=== PATIENT | female | born 1990 | race Caucasian/White ===

== ENCOUNTER 2022-09-07 19:57 | Observation (INO) | payer MEDICARE, SELFPAY ==
[2022-09-07] VITALS (38 sets, daily range): BP systolic 87–137; BP diastolic 49–85; PULSE 53–101; RESP 8–23; TEMP 37.3; O2SAT 96–100
--- NOTE | 2022-09-07 20:53 | ED.PROG_ITS ---
Date of service: 09/07/22 Time of Service: 20:53 Medical Decision Making I participated in this patient's care in setting of vaginal bleeding. She is reportedly 15 weeks . I completed a limited bedside ultrasound. Please see my procedure note. Patient had reassuring heart tones. She was hemod ynamically stable with no hypotension but she was mildly tachycardic. Patient's advanced practitioner paged JOB SITE SUPERINTENDENT to come to the patient. Patient was ultimately hospitalized at [facility]. Discharge Plan Discharge Details Chief Complaint: JOB SITE SUPERINTENDENT Admit Date/Time: 09/07/22 22:17 Admit Provider: Maeve Platt Attending Provider: Maeve Platt [facility] Ale Horne Discharge Data Discharge Date/Time-TO BE ENTERED AT DEPARTURE: 09/08/22 00:08 POCUS Exam (ED) Limited OB Exam DATE OF EXAM:: 09/07/22 TIME OF EXAM:: 20:54 PROVIDER THAT PERFORMED THE STUDY: Dwaine Ruffin Type of Exam: Pelvic OB Trans Abdominal REASON FOR EXAM: Vaginal Bleeding Exam Complete. DIFFERENTAL DIAGNOSES: heart rate 169 bpm. INCIDENTAL FINDINGS: There was an anechoic area just inferior to the placenta on transabdominal pelvic ultrasound.
[2022-09-07] MEDS: Normal Saline 1,000 ML 1000 ML IV (21:23)
[2022-09-07 21:45] LABS: ALT 17 U/L (14-59); AST 16 U/L (15-37); Albumin 3.5 g/dL (3.4-5.0); Alkaline Phosphatase 52 U/L (46-116); Anion Gap 9.4 mmol/L (3-11); BUN 10 mg/dL (7-18); Bilirubin, Total 0.2 mg/dL (0.2-1.0); CO2 22.6 mmol/L (21.0-32.0); CREATININE 0.6 mg/dL (0.55-1.02); Calcium 8.6 mg/dL (8.5-10.1); Chloride 101 mmol/L (98-107); Estimated GFR 123.76 (mL/min/1.73m2); Glucose 103 mg/dL (74-106); Potassium 3.9 mmol/L (3.5-5.1); Sodium 133 mmol/L (136-145); Total Protein 6.9 g/dL (6.4-8.2)
[2022-09-07 21:46] LABS: Abs Immature Grans 0.12 10^3/uL (0.0-0.06); Absolute Lymphocyte Count 2.36 10^3/uL (1.2-3.4); Absolute Monocyte Count 0.68 10^3/uL (0.1-0.8); Basophils % 0.2; Eosinophils % 0.7; HCT 26.8 % (36.0-46.0); HGB 9.1 g/dL (11.2-15.7); Immature Grans % 0.7; Lymphocytes % 13.5; MCV 91 fL (80-95); MPV 11.7 fL (8.0-11.0); Monocytes % 3.9; Platelet Count 203 10^3/uL (130-400); RBC 2.94 10^6/uL (3.93-5.22); RDW 13.2 % (11.7-14.6); RDW-SD 43.6 fL; WBC 17.51 10^3/uL (4.4-10.8)
[2022-09-07 21:49] LABS: Absolute Basophil Count 0.04 10^3/uL (0.0-0.2); Absolute Eosinophil Count 0.12 10^3/uL (0.0-0.7); Absolute Neutrophil Count 14.18 10^3/uL (1.2-6.7)
[2022-09-07 22:41] LABS: Bilirubin Small (Negative); Blood Large (Negative); Clarity Turbid (Clear); Glucose Negative (Negative); Ketones Negative (Negative); Leukocyte Esterase Trace (Negative); Nitrite Negative (Negative); Specific Gravity 1.025 (1.005-1.025); Urobilinogen 0.2 mg/dL (Up to 0.2); pH 7.5 (5-8)
[2022-09-07] MEDS: Prochlorperazine 10 MG/2 ML VIAL 5 MG IVP (22:43)
[2022-09-07 22:48] LABS: RBC >50 HPF (0-2)
[2022-09-07 22:49] LABS: C & S Indicated? Yes
[2022-09-07] MEDS: MORPHine 4 MG/ML SYR 2 MG IVP (22:55)
--- NOTE | 2022-09-07 22:56 | HPE_ITS ---
Date of service: 09/07/22 Time of Service: 22:56 Assessment and Plan Assessment and plan (1) Grand mal seizure disorder: Status: Chronic Assessment and plan: Patient declines antiseizure medication while . (2) : Status: Acute Assessment and plan: BRANDON of 03/01/2023 documented at the time of a 14-week OB ultrasound (3) Partial placenta previa: Status: Acute Assessment and plan: We will repeat OB ultrasound in the morning (4) First trimester bleeding: Status: Acute Assessment and plan: I spoke with Alicja Bhatia MD attending physician at [facility] OB department. She agreed with the plan of maintaining stable hematocrit and expectant management. She will accept the patient in transfer if the patient desires a termination of for maternal safety. At the present time plan is to continue expectant management pain control and close observation of vital signs and bleeding status. (5) Subchorionic bleed: Status: Acute History of Present Illness History of Present Illness Chief Complaint: IUP @15 W1D EGA, partial placenta previa subchorionic hemorrhage Narrative: Pt is a 32yo female who is currently 15w1d EGA by LMP consistent with a 14-week OB ultrasound. Her BRANDON is 03/01/2023. She moved from [facility] to [place] a week ago. All her care has been in [facility]. Her course has been complicated by an episode of light vaginal bleeding beginning approximately 2 weeks ago. She was evaluated on 08/16/2022 with a transvaginal ultrasound that showed a viable IUP with no evidence of a subchorionic hemorrhage. The bleeding persisted with mild cramping and repeat ultrasound was performed on 08/29/2022 and showed a partial placenta previa with posterior insertion and a 65 x 52 x 39 mm subchorionic hemorrhage. After arriving in [place] last week bleeding has become heavier with the passage of clots and in the last 24 hours she reports having to change a page-pad every 1-2 hours and passing clots several times a day. She reports uterine cramping and nausea no emesis. Review of Systems Narrative: Patient reports uterine cramping and nausea since earlier today. Constitutional Constitutional: Denies body ache(s) and Denies fever(s) Cardiovascular Cardiovascular: Reports system reviewed and no additional complaints, except as documented Respiratory Respiratory: Reports system reviewed and no additional complaints, except as documented Gastrointestinal Gastrointestinal: Reports constipation and Reports nausea Genitourinary Genitourinary: Reports abnormal vaginal bleeding Musculoskeletal Musculoskeletal: Reports system reviewed and no additional complaints, except as documented Neurologic Neurologic: Reports seizure-like activity (Last grand mal seizure was a month ago) Psychiatric Psychiatric: Reports anxiety (Regarding the bleeding and if this is a viable .) Comments: This is a desired . Patient wants to avoid a D&E if possible PFSH All Active Problems (Updated 09/07/22 @ 23:36 by Maeve Platt MD) Subchorionic bleed (Acute) 65 x 52 x 39 mm on 08/29/2022 ultrasound [facility] Constipation (Acute) Asthma (Chronic) Partial placenta previa (Acute) Posterior placenta Bicornuate uterus (Acute) First trimester bleeding (Acute) (Acute) Conceived 5 months after previous vaginal . BRANDON 03/01/2023 Grand mal seizure disorder (Chronic) Stopped into seizure meds with positive test. Surgical History (Updated 09/07/22 @ 23:21 by Maeve Platt MD) History of appendectomy History of cholecystectomy History of tonsillectomy Social History (Updated 09/07/22 @ 23:27 by Maeve Platt MD) Smoking/Tobacco Use Status: Never Smoking risk assessment performed?: Yes Alcohol Intake: never Drug use: Never Substance use type: does not use Household members: significant other, family, children and other Details: SO- in [place]. Pt moved her 5mo daughter with her sister. Number of Children: 1 Do you feel safe at home: Yes Do you feel safe in your relationship?: Yes Additional Social history: does not drive secondary to seizure disorder. History History 3 Para Hx # Term Pregnancies 1 Multiple births Hx # Pregnancies Ectopic pregnancies AB induced Hx Number of Living Children 1 AB spontaneous 1 Meds Allergies and Home Medications Allergies Allergy/AdvReac Type Severity Reaction Status Date / Time latex Allergy Verified 09/07/22 21:26 ondansetron [From Zofran] Allergy Verified 09/07/22 20:16 topiramate [From Topamax] Allergy Verified 09/07/22 20:16 Home Medications Medication Instructions Recorded Confirmed Type ferrous [id number] 1 cap PO DAILY 09/07/22 09/07/22 History capsule folic acid 1 mg tablet 1 mg PO DAILY 09/07/22 09/07/22 History vits 16-iron 90 mg-folic 1 tab PO DAILY 09/07/22 09/07/22 History acid 1 mg-docusate sod 50 mg tablet Exam Const General: no acute distress Nutritional Appearance: average body habitus Orientation: alert, awake and oriented x3 Neck Neck: normal visual inspection Chest Chest: deferred Resp Effort & Inspection: normal respiratory effort Cardio Rate: regular rate Rhythm: regular rhythm GI Inspection: normal to inspection Palpation: soft and mass (Uterus globular above the pubic symphysis) Other: Formed stool in the rectum OB/External & Speculum: bleeding (Red-brown discharge and page-pad) Manual OB Exam: dilated (Not dilated cervix posterior lower uterine segment is developed) fingertip Skin General skin exam: no rashes or lesions noted Neuro Cognition: normal cognition Speech: speech normal Gait: normal gait Motor: muscle tone normal throughout Extrem General: normal to inspection Psych Appearance: grossly normal Mental Status: mental status grossly normal Speech and Movement: speech and movement normal Mood: congruent mood Affect: normal affect Attitude: cooperative Thought Process: normal Thought Content: normal Insight: insight good Judgment: judgment good Results Labs 09/07/22 21:41 09/07/22 20:40 Labs: Laboratory Results - last 24 hr 09/07/22 09/07/22 09/07/22 20:40 20:40 20:40 WBC Cancelled RBC Cancelled Hgb Cancelled Hct Cancelled MCV Cancelled MCH Cancelled MCHC Cancelled RDW Cancelled Plt Count Cancelled MPV Cancelled Immature Gran % Cancelled Neutrophils % Cancelled Band Neutrophils % Cancelled Lymphocytes % Cancelled Atypical Lymphs % Cancelled Monocytes % Cancelled Eosinophils % Cancelled Basophils % Cancelled Metamyelocytes % Cancelled Myelocytes % Cancelled Promyelocytes % Cancelled Other Cells % Cancelled Nucleated RBC % Cancelled Absolute Neutrophils Cancelled Absolute Lymphocytes Cancelled Absolute Monocytes Cancelled Absolute Eosinophils Cancelled Absolute Basophils Cancelled RBC Morphology Cancelled Polychromasia Cancelled Hypochromasia Cancelled Poikilocytosis Cancelled Basophilic Stippling Cancelled Anisocytosis Cancelled Microcytosis Cancelled Macrocytosis Cancelled Spherocytes Cancelled Tear Drop Cells Cancelled Ovalocytes Cancelled Stomatocytes Cancelled [place] Bodies Cancelled Veronica Cells/Echinocytes Cancelled Acanthocytes (Spur) Cancelled Schistocytes Cancelled Sodium 133 L Potassium 3.9 Chloride 101 Carbon Dioxide 22.6 Anion Gap 9.4 BUN 10 Creatinine 0.6 Est GFR (CKD-EPI 2020) 123.76 Glucose 103 Calcium 8.6 Total Bilirubin 0.2 AST 16 ALT 17 Alkaline Phosphatase 52 Total Protein 6.9 Albumin 3.5 Urine Color Urine Clarity Urine pH Ur Specific [place] Urine Protein Urine Ketones Urine Blood Urine Nitrite Urine Bilirubin Urine Urobilinogen Ur Leukocyte Esterase Urine RBC Urine WBC Ur Epithelial Cells Urine Crystals Urine Bacteria Urine Casts Urine Mucus Ur Culture Indicated? Urine Glucose Patient ABO/Rh O Positive Antibody Screen NEGATIVE 09/07/22 09/07/22 21:30 21:41 WBC 17.51 H RBC 2.94 L Hgb 9.1 L Hct 26.8 L MCV 91 MCH 31.0 MCHC 34.0 RDW 13.2 Plt Count 203 MPV 11.7 H Immature Gran % 0.7 Neutrophils % 81.0 Band Neutrophils % Lymphocytes % 13.5 Atypical Lymphs % Monocytes % 3.9 Eosinophils % 0.7 Basophils % 0.2 Metamyelocytes % Myelocytes % Promyelocytes % Other Cells % Nucleated RBC % 0.0 Absolute Neutrophils 14.18 H Absolute Lymphocytes 2.36 Absolute Monocytes 0.68 Absolute Eosinophils 0.12 Absolute Basophils 0.04 RBC Morphology Polychromasia Hypochromasia Poikilocytosis Basophilic Stippling Anisocytosis Microcytosis Macrocytosis Spherocytes Tear Drop Cells Ovalocytes Stomatocytes [place] Bodies [place] Cells/Echinocytes Acanthocytes (Spur) Schistocytes Sodium Potassium Chloride Carbon Dioxide Anion Gap BUN Creatinine Est GFR (CKD-EPI 2020) Glucose Calcium Total Bilirubin AST ALT Alkaline Phosphatase Total Protein Albumin Urine Color Red Urine Clarity Turbid Urine pH 7.5 Ur Specific [place] 1.025 Urine Protein >=300 H Urine Ketones Negative Urine Blood Large H Urine Nitrite Negative Urine Bilirubin Small H Urine Urobilinogen 0.2 Ur Leukocyte Esterase Trace H Urine RBC >50 H Urine WBC Ur Epithelial Cells Urine Crystals Urine Bacteria Urine Casts Urine Mucus Ur Culture Indicated? Yes Urine Glucose Negative Patient ABO/Rh Antibody Screen Last Vital Signs Temp 99.1 F 09/07/22 20:01 Pulse 77 09/07/22 22:19 Resp 17 09/07/22 22:20 BP 130/65 09/07/22 22:19 Pulse Ox 98 06/05/23 22:20 Time Spent Time spent with Patient: 40-54 minutes Time was spent: preparing to see the patient(eg.review tests), obtaining and/or reviewing separately otained hiistory, ordering medications,tests, procedures, referring, communicating with other health client care representative and counseling the patient
[2022-09-07] MEDS: Lactated Ringers 1,000 ML 125 ML IV (23:00)
[2022-09-08] VITALS (51 sets, daily range): BP systolic 83–126; BP diastolic 38–89; PULSE 44–100; RESP 11–25; TEMP 36.5–37.1; O2SAT 97–100
[2022-09-08] MEDS: Acetaminophen 325 MG TAB 650 MG PO (00:34)
[2022-09-08 01:28] LABS: *AMPHETAMINES SCREEN URINE Negative (Negative); *BARBITURATES SCREEN URINE Negative (Negative); *BENZODIAZEPINES SCREEN URINE Negative (Negative); Cannabinoids THC Positive (Negative); Cocaine Screen,Urine Negative (Negative); METHADONE URINE SCREEN Negative (Negative); OPIATES URINE SCREEN Negative (Negative)
[2022-09-08 01:29] LABS: Tricyclic Antidepressants Negative (Negative)
[2022-09-08] MEDS: MORPHine 10 MG/ML VIAL 2 MG IVP (02:26)
--- NOTE | 2022-09-08 03:12 | W.PM.PROGNOT ---
Date of Service Date of service: 09/08/22 Time of Service: 03:12 Subjective Subjective Interval history since last seen: Worsening pain episodic contractions increased loss of blood via the vagina Exam Narrative Exam Narrative: I was called to bedside for evaluation of the patient's bleeding. Within approximately half hour she has passed 3 large clots weighing approximately total of 2 pounds as measured on the Chux. Sterile vaginal exam was performed the cervix is not dilated though the exam was limited because of the patient discomfort. Bedside ultrasound was performed there is a viable fetus in the breech position with an intact amniotic sac. I was unable to visualize the previous blood clot as demonstrated in the emergency room earlier this evening. The patient's bladder was distended. Objective Last Vital Signs Temp 98.2 F 09/08/22 02:45 Pulse 78 09/08/22 03:08 Resp 16 09/08/22 03:00 BP 125/78 09/08/22 03:08 Pulse Ox 99 09/08/22 00:29 Laboratory Results - last 24 hr 09/07/22 09/07/22 09/07/22 20:40 20:40 20:40 WBC Cancelled RBC Cancelled Hgb Cancelled Hct Cancelled MCV Cancelled MCH Cancelled MCHC Cancelled RDW Cancelled Plt Count Cancelled MPV Cancelled Immature Gran % Cancelled Neutrophils % Cancelled Band Neutrophils % Cancelled Lymphocytes % Cancelled Atypical Lymphs % Cancelled Monocytes % Cancelled Eosinophils % Cancelled Basophils % Cancelled Metamyelocytes % Cancelled Myelocytes % Cancelled Promyelocytes % Cancelled Other Cells % Cancelled Nucleated RBC % Cancelled Absolute Neutrophils Cancelled Absolute Lymphocytes Cancelled Absolute Monocytes Cancelled Absolute Eosinophils Cancelled Absolute Basophils Cancelled RBC Morphology Cancelled Polychromasia Cancelled Hypochromasia Cancelled Poikilocytosis Cancelled Basophilic Stippling Cancelled Anisocytosis Cancelled Microcytosis Cancelled Macrocytosis Cancelled Spherocytes Cancelled Tear Drop Cells Cancelled Ovalocytes Cancelled Stomatocytes Cancelled [place] Bodies Cancelled Veronica Cells/Echinocytes Cancelled Acanthocytes (Spur) Cancelled Schistocytes Cancelled Sodium 133 L Potassium 3.9 Chloride 101 Carbon Dioxide 22.6 Anion Gap 9.4 BUN 10 Creatinine 0.6 Est GFR (CKD-EPI 2020) 123.76 Glucose 103 Calcium 8.6 Total Bilirubin 0.2 AST 16 ALT 17 Alkaline Phosphatase 52 Total Protein 6.9 Albumin 3.5 Urine Color Urine Clarity Urine pH Ur Specific [place] Urine Protein Urine Ketones Urine Blood Urine Nitrite Urine Bilirubin Urine Urobilinogen Ur Leukocyte Esterase Urine RBC Urine WBC Ur Epithelial Cells Urine Crystals Urine Bacteria Urine Casts Urine Mucus Ur Culture Indicated? Urine Glucose Urine Opiates Screen Urine Methadone Screen Ur Barbiturates Screen Ur Tricyclics Screen Ur Amphetamines Screen U Benzodiazepines Scrn Urine Cocaine Screen Ur THC Screen Patient ABO/Rh O Positive Antibody Screen NEGATIVE 09/07/22 09/07/22 09/07/22 21:30 21:30 21:41 WBC 17.51 H RBC 2.94 L Hgb 9.1 L Hct 26.8 L MCV 91 MCH 31.0 MCHC 34.0 RDW 13.2 Plt Count 203 MPV 11.7 H Immature Gran % 0.7 Neutrophils % 81.0 Band Neutrophils % Lymphocytes % 13.5 Atypical Lymphs % Monocytes % 3.9 Eosinophils % 0.7 Basophils % 0.2 Metamyelocytes % Myelocytes % Promyelocytes % Other Cells % Nucleated RBC % 0.0 Absolute Neutrophils 14.18 H Absolute Lymphocytes 2.36 Absolute Monocytes 0.68 Absolute Eosinophils 0.12 Absolute Basophils 0.04 RBC Morphology Polychromasia Hypochromasia Poikilocytosis Basophilic Stippling Anisocytosis Microcytosis Macrocytosis Spherocytes Tear Drop Cells Ovalocytes Stomatocytes [place] Bodies [place] Cells/Echinocytes Acanthocytes (Spur) Schistocytes Sodium Potassium Chloride Carbon Dioxide Anion Gap BUN Creatinine Est GFR (CKD-EPI 2020) Glucose Calcium Total Bilirubin AST ALT Alkaline Phosphatase Total Protein Albumin Urine Color Red Urine Clarity Turbid Urine pH 7.5 Ur Specific [place] 1.025 Urine Protein >=300 H Urine Ketones Negative Urine Blood Large H Urine Nitrite Negative Urine Bilirubin Small H Urine Urobilinogen 0.2 Ur Leukocyte Esterase Trace H Urine RBC >50 H Urine WBC Ur Epithelial Cells Urine Crystals Urine Bacteria Urine Casts Urine Mucus Ur Culture Indicated? Yes Urine Glucose Negative Urine Opiates Screen Negative Urine Methadone Screen Negative Ur Barbiturates Screen Negative Ur Tricyclics Screen Negative Ur Amphetamines Screen Negative U Benzodiazepines Scrn Negative Urine Cocaine Screen Negative Ur THC Screen Positive A Patient ABO/Rh Antibody Screen Objective Narrative Objective Narrative: Has been an increase in the amount of blood loss in the last half hour. She was ordered for 1 unit of packed red blood cells. However the blood bank is having a difficult time crossmatching the units I think secondary to mixing of blood with the patient's. The plan at this time is to crossmatch for O- blood and to treat transfuse as soon as possible. Patient continues to decline a D&E. She was counseled regarding the risk of increased blood loss potential hemorrhage and potential . I did obtain a informed consent for a D&E in the event that there is loss of viability or that her bleeding becomes life-threatening. I counseled her at the knee would be necessary to prevent her . She was counseled regarding the need for possible hysterotomy versus hysterectomy in the event that we are unable to control bleeding. Patient is clearly stated she does not want DNE while the fetus is viable. We will continue to monitor blood loss and continue replace blood products. Time Spent with Patient Time Spent with Patient: 25-34 minutes Time was spent: preparing to see the patient(eg.review tests), obtaining and/or reviewing separately otained hiistory and counseling the patient
[2022-09-08] MEDS: diphenhydrAMINE 50 MG/ML VIAL (04:00)
--- NOTE | 2022-09-08 04:08 | W.PM.PROGNOT ---
Date of Service Date of service: 09/08/22 Time of Service: 04:08 Exam Narrative Exam Narrative: Discussion with the patient and dialysis of the following factors: Excessive blood loss increasing passage of clots her blood pressure 90/60 pulse remained stable been unable to rapidly transfuse the patient for replacement blood loss her first unit of packed red blood cells is now going in along with the fresh frozen plasma. I have decided against transfer the patient and feel that she stable enough to be transported away to [facility] the plan is to call the OR crew and proceed with the D&E. Patient has been consented she has been counseled regarding the risks of the procedure and the danger of further blood loss. She is aware that she will lose the with this procedure I feel at this no other method by which to stop the bleeding is to unless the is terminated. Objective Last Vital Signs Temp 97.9 F 09/08/22 03:36 Pulse 83 09/08/22 03:52 Resp 16 09/08/22 03:52 BP 106/65 09/08/22 03:52 Pulse Ox 99 09/08/22 00:29 Laboratory Results - last 24 hr 09/07/22 09/07/22 09/07/22 20:40 20:40 20:40 WBC Cancelled RBC Cancelled Hgb Cancelled Hct Cancelled MCV Cancelled MCH Cancelled MCHC Cancelled RDW Cancelled Plt Count Cancelled MPV Cancelled Immature Gran % Cancelled Neutrophils % Cancelled Band Neutrophils % Cancelled Lymphocytes % Cancelled Atypical Lymphs % Cancelled Monocytes % Cancelled Eosinophils % Cancelled Basophils % Cancelled Metamyelocytes % Cancelled Myelocytes % Cancelled Promyelocytes % Cancelled Other Cells % Cancelled Nucleated RBC % Cancelled Absolute Neutrophils Cancelled Absolute Lymphocytes Cancelled Absolute Monocytes Cancelled Absolute Eosinophils Cancelled Absolute Basophils Cancelled RBC Morphology Cancelled Polychromasia Cancelled Hypochromasia Cancelled Poikilocytosis Cancelled Basophilic Stippling Cancelled Anisocytosis Cancelled Microcytosis Cancelled Macrocytosis Cancelled Spherocytes Cancelled Tear Drop Cells Cancelled Ovalocytes Cancelled Stomatocytes Cancelled [place] Afb Bodies Cancelled Veronica Cells/Echinocytes Cancelled Acanthocytes (Spur) Cancelled Schistocytes Cancelled Sodium 133 L Potassium 3.9 Chloride 101 Carbon Dioxide 22.6 Anion Gap 9.4 BUN 10 Creatinine 0.6 Est GFR (CKD-EPI 2020) 123.76 Glucose 103 Calcium 8.6 Total Bilirubin 0.2 AST 16 ALT 17 Alkaline Phosphatase 52 Total Protein 6.9 Albumin 3.5 Urine Color Urine Clarity Urine pH Ur Specific [place] Urine Protein Urine Ketones Urine Blood Urine Nitrite Urine Bilirubin Urine Urobilinogen Ur Leukocyte Esterase Urine RBC Urine WBC Ur Epithelial Cells Urine Crystals Urine Bacteria Urine Casts Urine Mucus Ur Culture Indicated? Urine Glucose Urine Opiates Screen Urine Methadone Screen Ur Barbiturates Screen Ur Tricyclics Screen Ur Amphetamines Screen U Benzodiazepines Scrn Urine Cocaine Screen Ur THC Screen Patient ABO/Rh O Positive Antibody Screen NEGATIVE Crossmatch See Detail 09/07/22 09/07/22 09/07/22 21:30 21:30 21:41 WBC 17.51 H RBC 2.94 L Hgb 9.1 L Hct 26.8 L MCV 91 MCH 31.0 MCHC 34.0 RDW 13.2 Plt Count 203 MPV 11.7 H Immature Gran % 0.7 Neutrophils % 81.0 Band Neutrophils % Lymphocytes % 13.5 Atypical Lymphs % Monocytes % 3.9 Eosinophils % 0.7 Basophils % 0.2 Metamyelocytes % Myelocytes % Promyelocytes % Other Cells % Nucleated RBC % 0.0 Absolute Neutrophils 14.18 H Absolute Lymphocytes 2.36 Absolute Monocytes 0.68 Absolute Eosinophils 0.12 Absolute Basophils 0.04 RBC Morphology Polychromasia Hypochromasia Poikilocytosis Basophilic Stippling Anisocytosis Microcytosis Macrocytosis Spherocytes Tear Drop Cells Ovalocytes Stomatocytes [place]b Bodies Veronica Cells/Echinocytes Acanthocytes (Spur) Schistocytes Sodium Potassium Chloride Carbon Dioxide Anion Gap BUN Creatinine Est GFR (CKD-EPI 2020) Glucose Calcium Total Bilirubin AST ALT Alkaline Phosphatase Total Protein Albumin Urine Color Red Urine Clarity Turbid Urine pH 7.5 Ur Specific [place] 1.025 Urine Protein >=300 H Urine Ketones Negative Urine Blood Large H Urine Nitrite Negative Urine Bilirubin Small H Urine Urobilinogen 0.2 Ur Leukocyte Esterase Trace H Urine RBC >50 H Urine WBC Ur Epithelial Cells Urine Crystals Urine Bacteria Urine Casts Urine Mucus Ur Culture Indicated? Yes Urine Glucose Negative Urine Opiates Screen Negative Urine Methadone Screen Negative Ur Barbiturates Screen Negative Ur Tricyclics Screen Negative Ur Amphetamines Screen Negative U Benzodiazepines Scrn Negative Urine Cocaine Screen Negative Ur THC Screen Positive A Patient ABO/Rh Antibody Screen Crossmatch Time Spent with Patient Time Spent with Patient: 25-34 minutes Time was spent: preparing to see the patient(eg.review tests), obtaining and/or reviewing separately otained hiistory and referring, communicating with other health palliative care nurse
[2022-09-08] MEDS: ceFAZolin 2,000 MG in Normal Saline 100 ML 200 MG IVPB (04:25)
[2022-09-08] MEDS: ELECTROLYTE-R SOLUTION 1,000 ML 30 ML IV (04:47)
[2022-09-08] MEDS: Normal Saline 1,000 ML 100 ML IV (04:50)
--- NOTE | 2022-09-08 04:54 | NUR.NOTE ---
Nursing Note: Patient in OR at this time and per Dr. Platt planning to transfer to ICU after OR procedure.
--- NOTE | 2022-09-08 05:14 | POCSPONT_PTH ---
PATIENT: Minal Tavares LOC: OBS U#:[id number] AGE/SX: 32/F ROOM: OBS.304 RE09/07/[address]: Maeve Platt : 1990 BED: A DIS: 09/08/2022 SPEC #: [id number] RECD: 09/08/22 12:16 STATUS: ROSE MARIE REQ #: [id number] DB: 09/08/22 05:[address]: Maeve Platt DEPT: Surgical Specimen RECD BY: Ale Espinoza ENTERED: 09/08/22 12:17 SP TYPE: ARISTEO AHUMADA DR: Kath Local Tissues: 1 - ,SPONTANEOUS CHROMOSOME ANALYSIS PROFILE Procedures: GROSS AND MICRO LEVEL 4 CHROMOSOME ANALYSIS 15-20 CELLS CHROMOSOME ANALYSIS TISSUE CULTURE Comments: (CYTOGENETICS - [id number])
--- NOTE | 2022-09-08 06:11 | PGE_ITS ---
Date of Service Date of service: 09/08/22 Time of Service: 06:11 Subjective Subjective Interval history since last seen: Summary of sequence of events preceding D&E in OR. An order for a transfusion of 1 unit of packed red blood cells was entered at 2140 while the patient was in the emergency department. There was delay in initiating transfusion until after the patient had arrived on the center and began heavy vaginal bleeding. Pt arrived to ~0020. Uterine bleeding and cramping was essentially unchanged with the amount that was observed in the emergency department. She had received Compazine IV for nausea prior to arrival to the center. At 05 29 patient began to pass blood and organized clot. Bedside ultrasound was performed that showed a viable intrauterine with amniotic fluid present. There is no evidence of cervical funneling and no evidence of organized clot in the uterus. Reyes catheter was placed to gravity drainage with clear [place] urine in the Reyes bag. Patient became increasingly uncomfortable her pulse stayed in the 80 range. Blood pressure declined to 86/40 she was placed in Trendelenburg position and an IV bolus of normal saline was initiated additional IV lines were inserted. I [place] [facility] [place] decision was made not to attempt transfer of the [place] [facility] and to proceed with a D&E in the [facility] operating room. Patient was transferred ported to the operating room at approximately 430 after the initial unit of blood was started. Urine output via Reyes catheter prior to the operating room was 450 cc. Objective Last Vital Signs Temp 98.0 F 09/08/22 04:25 Pulse 72 09/08/22 04:25 Resp 16 09/08/22 04:25 BP 125/75 09/08/22 04:25 Pulse Ox 100 09/08/22 04:25 Laboratory Results - last 24 hr 09/07/22 09/07/22 09/07/22 20:40 20:40 20:40 WBC Cancelled RBC Cancelled Hgb Cancelled Hct Cancelled MCV Cancelled MCH Cancelled MCHC Cancelled RDW Cancelled Plt Count Cancelled MPV Cancelled Immature Gran % Cancelled Neutrophils % Cancelled Band Neutrophils % Cancelled Lymphocytes % Cancelled Atypical Lymphs % Cancelled Monocytes % Cancelled Eosinophils % Cancelled Basophils % Cancelled Metamyelocytes % Cancelled Myelocytes % Cancelled Promyelocytes % Cancelled Other Cells % Cancelled Nucleated RBC % Cancelled Absolute Neutrophils Cancelled Absolute Lymphocytes Cancelled Absolute Monocytes Cancelled Absolute Eosinophils Cancelled Absolute Basophils Cancelled RBC Morphology Cancelled Polychromasia Cancelled Hypochromasia Cancelled Poikilocytosis Cancelled Basophilic Stippling Cancelled Anisocytosis Cancelled Microcytosis Cancelled Macrocytosis Cancelled Spherocytes Cancelled Tear Drop Cells Cancelled Ovalocytes Cancelled Stomatocytes Cancelled [place] Bodies Cancelled [place] Cells/Echinocytes Cancelled Acanthocytes (Spur) Cancelled Schistocytes Cancelled Sodium 133 L Potassium 3.9 Chloride 101 Carbon Dioxide 22.6 Anion Gap 9.4 BUN 10 Creatinine 0.6 Est GFR (CKD-EPI 2020) 123.76 Glucose 103 Calcium 8.6 Total Bilirubin 0.2 AST 16 ALT 17 Alkaline Phosphatase 52 Total Protein 6.9 Albumin 3.5 Urine Color Urine Clarity Urine pH Ur Specific [place] Urine Protein Urine Ketones Urine Blood Urine Nitrite Urine Bilirubin Urine Urobilinogen Ur Leukocyte Esterase Urine RBC Urine WBC Ur Epithelial Cells Urine Crystals Urine Bacteria Urine Casts Urine Mucus Ur Culture Indicated? Urine Glucose Urine Opiates Screen Urine Methadone Screen Ur Barbiturates Screen Ur Tricyclics Screen Ur Amphetamines Screen U Benzodiazepines Scrn Urine Cocaine Screen Ur THC Screen Patient ABO/Rh O Positive Antibody Screen NEGATIVE Crossmatch See Detail 09/07/22 09/07/22 09/07/22 21:30 21:30 21:41 WBC 17.51 H RBC 2.94 L Hgb 9.1 L Hct 26.8 L MCV 91 MCH 31.0 MCHC 34.0 RDW 13.2 Plt Count 203 MPV 11.7 H Immature Gran % 0.7 Neutrophils % 81.0 Band Neutrophils % Lymphocytes % 13.5 Atypical Lymphs % Monocytes % 3.9 Eosinophils % 0.7 Basophils % 0.2 Metamyelocytes % Myelocytes % Promyelocytes % Other Cells % Nucleated RBC % 0.0 Absolute Neutrophils 14.18 H Absolute Lymphocytes 2.36 Absolute Monocytes 0.68 Absolute Eosinophils 0.12 Absolute Basophils 0.04 RBC Morphology Polychromasia Hypochromasia Poikilocytosis Basophilic Stippling Anisocytosis Microcytosis Macrocytosis Spherocytes Tear Drop Cells Ovalocytes Stomatocytes [place] Bodies Veronica Cells/Echinocytes Acanthocytes (Spur) Schistocytes Sodium Potassium Chloride Carbon Dioxide Anion Gap BUN Creatinine Est GFR (CKD-EPI 2020) Glucose Calcium Total Bilirubin AST ALT Alkaline Phosphatase Total Protein Albumin Urine Color Red Urine Clarity Turbid Urine pH 7.5 Ur Specific [place] 1.025 Urine Protein >=300 H Urine Ketones Negative Urine Blood Large H Urine Nitrite Negative Urine Bilirubin Small H Urine Urobilinogen 0.2 Ur Leukocyte Esterase Trace H Urine RBC >50 H Urine WBC Ur Epithelial Cells Urine Crystals Urine Bacteria Urine Casts Urine Mucus Ur Culture Indicated? Yes Urine Glucose Negative Urine Opiates Screen Negative Urine Methadone Screen Negative Ur Barbiturates Screen Negative Ur Tricyclics Screen Negative Ur Amphetamines Screen Negative U Benzodiazepines Scrn Negative Urine Cocaine Screen Negative Ur THC Screen Positive A Patient ABO/Rh Antibody Screen Crossmatch 09/08/22 09/08/22 05:35 Unknown WBC Cancelled Cancelled RBC Cancelled Cancelled Hgb Cancelled Cancelled Hct Cancelled Cancelled MCV Cancelled Cancelled MCH Cancelled Cancelled MCHC Cancelled Cancelled RDW Cancelled Cancelled Plt Count Cancelled Cancelled MPV Cancelled Cancelled Immature Gran % Neutrophils % Band Neutrophils % Lymphocytes % Atypical Lymphs % Monocytes % Eosinophils % Basophils % Metamyelocytes % Myelocytes % Promyelocytes % Other Cells % Nucleated RBC % Absolute Neutrophils Absolute Lymphocytes Absolute Monocytes Absolute Eosinophils Absolute Basophils RBC Morphology Polychromasia Hypochromasia Poikilocytosis Basophilic Stippling Anisocytosis Microcytosis Macrocytosis Spherocytes Tear Drop Cells Ovalocytes Stomatocytes [place] Bodies [place] Cells/Echinocytes Acanthocytes (Spur) Schistocytes Sodium Potassium Chloride Carbon Dioxide Anion Gap BUN Creatinine Est GFR (CKD-EPI 2020) Glucose Calcium Total Bilirubin AST ALT Alkaline Phosphatase Total Protein Albumin Urine Color Urine Clarity Urine pH Ur Specific [place] Urine Protein Urine Ketones Urine Blood Urine Nitrite Urine Bilirubin Urine Urobilinogen Ur Leukocyte Esterase Urine RBC Urine WBC Ur Epithelial Cells Urine Crystals Urine Bacteria Urine Casts Urine Mucus Ur Culture Indicated? Urine Glucose Urine Opiates Screen Urine Methadone Screen Ur Barbiturates Screen Ur Tricyclics Screen Ur Amphetamines Screen U Benzodiazepines Scrn Urine Cocaine Screen Ur THC Screen Patient ABO/Rh Antibody Screen Crossmatch Time Spent with Patient Time Spent with Patient: <25 minutes Time was spent: preparing to see the patient(eg.review tests) and ordering medications,tests, procedures
--- NOTE | 2022-09-08 06:17 | PDOC.ANES ---
Date of service: 09/08/22 Time of Service: 04:30 Anesthesia Note Report Anesthesia Note: To OB to assist with IV access and moving pt to the operating room. One 22ga IV in and working enough, transported to the OR to work on additional IV access. In elevator verbal anesthesia consent was discussed (GAETT, central line(s)). Abbreviated risks discussed (hemorrhage, awareness, damage to blood vessels/nerves/lungs/infection/clot, and other potentially serious issues). Midline Placement Date Performed: 09/08/22 Procedure Time: 04:40 Requesting Provider: Williams Fields Procedure Location: Operating Room Sedation Given (Indicate Dose Given): No Sedation given Patient Mental Status: Awake Sterility: Hand Hygiene, Surgical Cap, Surgical Mask and Chlorhexidine Laterality: Right Insertion Site: Other (right IJ. ) Midline Device: PowerGlide Pro 18G Catheter Length: 10 cm Midline Procedure Procedure: Vessel accessed with catheter over needle Dressing: Tegaderm Applied Blood Return: Present Flushes: Easily Ultrasound: Sterile probe cover and gel used (not saved to do emergent procedure. ) Ultrasound Image Saved?: No Number of Attempts (See previous attempts in note section): 1 Procedure Tolerated: No Complications Procedure Outcome: Successful Performed By: Williams Fields Central Venous Line Placement Date Performed: 09/08/22 Procedure Time: 04:40 Procedure Location: Operating Room Requesting Provider: Williams Fields Standard Monitors Applied: ECG, Blood Pressure, SpO2 and ETCO2 Pt. Position: Supine Timeout Performed: No Sedation Given (Indicate Dose Given): No Sedation given Patient Mental Status: Performed under general anesthesia Sterility: Hand Hygiene, Surgical Cap, Surgical Mask, Sterile Gloves, Sterile Drape/Sheet, Sterile Gown and Chlorhexidine Laterality: Right Insertion Site: Subclavian Central Line Type: Triple Lumen Catheter Insertion Procedure: Vessel accessed with catheter over needle, catheter advanced Dressing: [place] Dressing Placed, BioPatch and Sutured in Place Catheter Depth at Skin (cm): 20 Placement Confirmation: Confirmation X-Ray Ordered Ultrasound: Sterile probe cover and gel used Ultrasound Image Saved?: Yes Number of Attempts (See previous attempts in note section): 1 Procedure Tolerated: No Complications Procedure Outcome: Successful Procedure Comment: Right IJ catheter flushes well, but runs poorly, bleeding not currently stopped, subclavian introducer starting to be placed, on placement of wire, bleeding stated as under control, triple lumen placed instead. Performed By: Williams Fields
--- NOTE | 2022-09-08 06:26 | W.PM.OP ---
Date of service: 09/08/22 Time of Service: 06:26 Operative Note Operative Note DATE OF PROCEDURE: 09/08/22 PRE-OP DIAGNOSIS: IUP at 15 W2D EGA, placenta abruption, maternal hemorrhage, bicornuate uterus PROCEDURE: Suction evacuation of uterine contents SURGEON: Maeve Platt ASSISTING SURGEON: Oxana Galdamez ANESTHESIA TYPE: General LMA/ETT Refer to Anesthesia Record ESTIMATED BLOOD LOSS: 1,500 PATHOLOGY: other ( parts and placental tissue for cytogenetics. parts and placental tissue for gross pathology) COMPLICATIONS: None Patient was transported to: PACU Patient's condition: stable Indications: 32-year-old G3, P1 female with a documented placental abruption at 14 weeks EGA who developed increased uterine bleeding and pelvic pain beginning earlier this evening. She was admitted for observation and had increased volume of blood loss beginning approximately 02:00 review surgery. Blood loss 1120 mL. Decision was made to proceed with a evacuation of uterine contents after the patient's blood pressure started to decline. She was counseled that this would terminate the but it was necessary to save her life. She consented to the procedure. Findings: Uterine fundus palpated at the umbilicus at the time of the patient's arrival to the operating room. The cervix was dilated to approximately 5 cm. Under ultrasound guidance the uterus was evacuated of all contents. Bicornuate uterus was noted. At the completion of the procedure the uterus was firm, approximately 7-week size with minimal bleeding from the cervix. EBL from blood loss on Center and in OR ~1500cc. Procedure Description: Patient was taken to the operating room where she was placed in the dorsal supine position and general anesthesia was administered without difficulty. 2 gms of IV Ancef was administered prior to arrival in the OR. She was then placed in the dorsal lithotomy position in [facility] stirrups in a neurologically neutral position. She was then prepped, and draped in the usual sterile fashion. SCDs were in place. [place] speculum was placed into the vagina and large amounts of organized clot were evacuated from the vaginal vault and the exterior os. The anterior lip of the cervix was grasped with a single-tooth tenaculum. Cervix did not require dilation as it was already 5 cm dilated. A 12 mm curved suction cannula was placed into the uterine cavity, attached to suction and the amniotic sac was ruptured and the fluid suctioned. Nonviable fetus was delivered spontaneously in the vertex presentation and passed off of the operative field. Using transabdominal ultrasound guidance the uterus was suction evacuated of products of conception. A banjo curette was then used to gently curette all 4 quadrants of the uterine cavity including the uterine cornua once again and ultrasound guidance. A final suction aspiration was performed with minimal tissue returned. Instruments were removed from the vagina. The tenaculum site was noted to be hemostatic. Uterus was small and firm at the completion of the procedure. Patient was awakened, extubated and transported to recovery area in stable condition. All sponge lap needle counts correct x2
[2022-09-08] MEDS: fentaNYL 100 MCG/2 ML VIAL IVP (07:23)
[2022-09-08] MEDS: Normal Saline Flush 10 ML SYR (07:25)
--- NOTE | 2022-09-08 07:31 | DI.RAD_ITS ---
Exam(s) XR PORTABLE CHEST AP POST LINE EXAM: XR PORTABLE CHEST AP POST LINE CLINICAL HISTORY: TLC placement, right TECHNIQUE: 2D digital imaging was performed of the chest. One image was obtained. An AP view was ob tained. COMPARISON: No exams were available for comparison FINDINGS: MEDIASTINUM: Normal. HEART: Normal. PULMONARY VASCULATURE: Normal. LUNGS: Clear. PLEURAL SPACE: No pleural effusion or pneumothorax. BONE:Within normal limits for the patient's age. OTHER FINDINGS:There is a central venous catheter which enters the subclavian vessel on the right. T he tip crosses the midline and is located in the contralateral subclavian vessel. The catheter shoul d be repositioned. IMPRESSION: 1. No acute pulmonary findings. 2. Right subclavian central venous catheter. The tip of the catheter is cross the midline and is loc ated in the contralateral subclavian vessel. The catheter should be repositioned. The findings were discussed with anesthesia at 8:15 a.m. on 09/08/2022. DATA REPOSITORY: RADIATION DOSE DELIVERED:
[2022-09-08] MEDS: Ketorolac 30 MG/ML VIAL IVP ×2 (09:54→12:09)
[2022-09-08] MEDS: Prochlorperazine 10 MG/2 ML VIAL 5 MG IVP ×2 (09:56→16:32)
[2022-09-08 09:59] LABS: Abs Immature Grans 0.16 10^3/uL (0.0-0.06); Basophils % 0.2; Eosinophils % 0.1; HCT 29.5 % (36.0-46.0); HGB 10.1 g/dL (11.2-15.7); Immature Grans % 0.8; Lymphocytes % 4.6; MCH 30.6 pg (27.0-33.0); MCHC 34.2 % (32.0-36.0); MCV 89 fL (80-95); MPV 11.5 fL (8.0-11.0); Monocytes % 0.9; Neutrophils % 93.4; Platelet Count 186 10^3/uL (130-400); RDW 13.7 % (11.7-14.6); RDW-SD 45.1 fL; WBC 19.47 10^3/uL (4.4-10.8)
[2022-09-08 10:00] LABS: Absolute Basophil Count 0.04 10^3/uL (0.0-0.2); Absolute Eosinophil Count 0.02 10^3/uL (0.0-0.7); Absolute Monocyte Count 0.18 10^3/uL (0.1-0.8); Absolute Neutrophil Count 18.18 10^3/uL (1.2-6.7)
[2022-09-08 10:20] LABS: ALT 16 U/L (14-59); AST 15 U/L (15-37); Albumin 3.1 g/dL (3.4-5.0); Alkaline Phosphatase 51 U/L (46-116); Anion Gap 7.5 mmol/L (3-11); BUN 5 mg/dL (7-18); Bilirubin, Total 1.6 mg/dL (0.2-1.0); CO2 22.5 mmol/L (21.0-32.0); CREATININE 0.5 mg/dL (0.55-1.02); Calcium 7.9 mg/dL (8.5-10.1); Chloride 106 mmol/L (98-107); Estimated GFR 129.32 (mL/min/1.73m2); Glucose 119 mg/dL (74-106); Potassium 3.9 mmol/L (3.5-5.1); Sodium 136 mmol/L (136-145); Total Protein 5.8 g/dL (6.4-8.2)
--- NOTE | 2022-09-08 10:40 | PGE_ITS ---
Date of Service Date of service: 09/08/22 Time of Service: 10:40 Assessment and Plan Assessment and plan (1) History of D&C: Status: Acute Assessment and plan: Patient stable after evacuation of uterine contents for placental abruption and hemorrhage. Postop hematocrit stable. Patient is experiencing uterine cramping and nausea. I recommended that she have Toradol and or ibuprofen along with Compazine. She has a history of substance use and I told the patient that we will avoid narcotics for pain control. (2) History of transfusion: Status: Acute (3) Miscarriage: Status: Acute Assessment and plan: Patient has been shown the remains and will be provided mementos fetus. Final disposition of tissue has yet to be determined. The plan is to assist her with grieving process and move towards discharge with supports in place. Subjective Subjective Patient reports: nausea Interval history since last seen: Patient is status post D&C for placental abruption and hemorrhage after 15 weeks EGA. She received a total 2 units of preoperative and intraoperative packed red blood cells. She was admitted to ICU for observation secondary to her history of pseudoseizures and has been troubled with nausea and uterine cramping. She has been somewhat somnolent. I brought the fetus for the patient to see and reviewed the events leading up to the D&E. She will be provided with momentum os of the fetus including photos of cast of the footprints and the [place] the infant was presented to her in. Final arrangements regarding disposition are still pending. Exam Narrative Exam Narrative: Since her arrival to ICU her vital signs been stable her hematocrit after the second unit packed red blood cells 29%. Satisfactory urine output in the Reyes catheter. I feel that she would benefit from being transferred to the center to complete her post op stay. Const General: lethargic Nutritional Appearance: average body habitus Orientation: alert, awake and oriented x3 Resp Effort & Inspection: normal respiratory effort Cardio Rate: regular rate Rhythm: regular rhythm GI Inspection: normal to inspection Palpation: mass (Fundus firm 3 fingerbreadths below the umbilicus. Uterus tender to touch.) General: deferred Skin General skin exam: no rashes or lesions noted Extrem General: normal to inspection Psych Appearance: disheveled Mental Status: other (Speaks with her eyes closed. Difficult to discern her mood) Speech and Movement: slowed movement Mood: other (Speaks with her eyes closed. Difficult to discern her mood) Affect: sad Attitude: cooperative Thought Process: impoverished Thought Content: other (Focused on obtaining relief from nausea and uterine cramps.) Objective Last Vital Signs Temp 98.8 F 09/08/22 09:12 Pulse 65 09/08/22 10:01 Resp 19 09/08/22 10:01 BP 107/53 L 09/08/22 10:01 Pulse Ox 97 09/08/22 10:01 Laboratory Results - last 24 hr 09/07/22 09/07/22 09/07/22 20:40 20:40 20:40 WBC Cancelled RBC Cancelled Hgb Cancelled Hct Cancelled MCV Cancelled MCH Cancelled MCHC Cancelled RDW Cancelled Plt Count Cancelled MPV Cancelled Immature Gran % Cancelled Neutrophils % Cancelled Band Neutrophils % Cancelled Lymphocytes % Cancelled Atypical Lymphs % Cancelled Monocytes % Cancelled Eosinophils % Cancelled Basophils % Cancelled Metamyelocytes % Cancelled Myelocytes % Cancelled Promyelocytes % Cancelled Other Cells % Cancelled Nucleated RBC % Cancelled Absolute Neutrophils Cancelled Absolute Lymphocytes Cancelled Absolute Monocytes Cancelled Absolute Eosinophils Cancelled Absolute Basophils Cancelled RBC Morphology Cancelled Polychromasia Cancelled Hypochromasia Cancelled Poikilocytosis Cancelled Basophilic Stippling Cancelled Anisocytosis Cancelled Microcytosis Cancelled Macrocytosis Cancelled Spherocytes Cancelled Tear Drop Cells Cancelled Ovalocytes Cancelled Stomatocytes Cancelled [place] Bodies Cancelled [place] Cells/Echinocytes Cancelled Acanthocytes ([place]) Cancelled Schistocytes Cancelled Sodium 133 L Potassium 3.9 Chloride 101 Carbon Dioxide 22.6 Anion Gap 9.4 BUN 10 Creatinine 0.6 Est GFR (CKD-EPI 2020) 123.76 Glucose 103 Calcium 8.6 Total Bilirubin 0.2 AST 16 ALT 17 Alkaline Phosphatase 52 Total Protein 6.9 Albumin 3.5 Urine Color Urine Clarity Urine pH Ur Specific [place] Urine Protein Urine Ketones Urine Blood Urine Nitrite Urine Bilirubin Urine Urobilinogen Ur Leukocyte Esterase Urine RBC Urine WBC Ur Epithelial Cells Urine Crystals Urine Bacteria Urine Casts Urine Mucus Ur Culture Indicated? Urine Glucose Urine Opiates Screen Urine Methadone Screen Ur Barbiturates Screen Ur Tricyclics Screen Ur Amphetamines Screen U Benzodiazepines Scrn Urine Cocaine Screen Ur THC Screen Patient ABO/Rh O Positive Antibody Screen NEGATIVE Crossmatch See Detail 09/07/22 09/07/22 09/07/22 21:30 21:30 21:41 WBC 17.51 H RBC 2.94 L Hgb 9.1 L Hct 26.8 L MCV 91 MCH 31.0 MCHC 34.0 RDW 13.2 Plt Count 203 MPV 11.7 H Immature Gran % 0.7 Neutrophils % 81.0 Band Neutrophils % Lymphocytes % 13.5 Atypical Lymphs % Monocytes % 3.9 Eosinophils % 0.7 Basophils % 0.2 Metamyelocytes % Myelocytes % Promyelocytes % Other Cells % Nucleated RBC % 0.0 Absolute Neutrophils 14.18 H Absolute Lymphocytes 2.36 Absolute Monocytes 0.68 Absolute Eosinophils 0.12 Absolute Basophils 0.04 RBC Morphology Polychromasia Hypochromasia Poikilocytosis Basophilic Stippling Anisocytosis Microcytosis Macrocytosis Spherocytes Tear Drop Cells Ovalocytes Stomatocytes [place] Bodies Veronica Cells/Echinocytes Acanthocytes ([place]) Schistocytes Sodium Potassium Chloride Carbon Dioxide Anion Gap BUN Creatinine Est GFR (CKD-EPI 2020) Glucose Calcium Total Bilirubin AST ALT Alkaline Phosphatase Total Protein Albumin Urine Color Red Urine Clarity Turbid Urine pH 7.5 Ur Specific [place] 1.025 Urine Protein >=300 H Urine Ketones Negative Urine Blood Large H Urine Nitrite Negative Urine Bilirubin Small H Urine Urobilinogen 0.2 Ur Leukocyte Esterase Trace H Urine RBC >50 H Urine WBC Ur Epithelial Cells Urine Crystals Urine Bacteria Urine Casts Urine Mucus Ur Culture Indicated? Yes Urine Glucose Negative Urine Opiates Screen Negative Urine Methadone Screen Negative Ur Barbiturates Screen Negative Ur Tricyclics Screen Negative Ur Amphetamines Screen Negative U Benzodiazepines Scrn Negative Urine Cocaine Screen Negative Ur THC Screen Positive A Patient ABO/Rh Antibody Screen Crossmatch 09/08/22 09/08/22 09/08/22 05:35 09:55 09:55 WBC Cancelled 19.47 H RBC Cancelled 3.30 L Hgb Cancelled 10.1 L Hct Cancelled 29.5 L MCV Cancelled 89 MCH Cancelled 30.6 MCHC Cancelled 34.2 RDW Cancelled 13.7 Plt Count Cancelled 186 MPV Cancelled 11.5 H Immature Gran % 0.8 Neutrophils % 93.4 Band Neutrophils % Lymphocytes % 4.6 Atypical Lymphs % Monocytes % 0.9 Eosinophils % 0.1 Basophils % 0.2 Metamyelocytes % Myelocytes % Promyelocytes % Other Cells % Nucleated RBC % 0.0 Absolute Neutrophils 18.18 H Absolute Lymphocytes 0.90 L Absolute Monocytes 0.18 Absolute Eosinophils 0.02 Absolute Basophils 0.04 RBC Morphology Polychromasia Hypochromasia Poikilocytosis Basophilic Stippling Anisocytosis Microcytosis Macrocytosis Spherocytes Tear Drop Cells Ovalocytes Stomatocytes [place] Bodies Veronica Cells/Echinocytes Acanthocytes (Spur) Schistocytes Sodium 136 Potassium 3.9 Chloride 106 Carbon Dioxide 22.5 Anion Gap 7.5 BUN 5 L Creatinine 0.5 L Est GFR (CKD-EPI 2020) 129.32 Glucose 119 H Calcium 7.9 L Total Bilirubin 1.6 H AST 15 ALT 16 Alkaline Phosphatase 51 Total Protein 5.8 L Albumin 3.1 L Urine Color Urine Clarity Urine pH Ur Specific [place] Urine Protein Urine Ketones Urine Blood Urine Nitrite Urine Bilirubin Urine Urobilinogen Ur Leukocyte Esterase Urine RBC Urine WBC Ur Epithelial Cells Urine Crystals Urine Bacteria Urine Casts Urine Mucus Ur Culture Indicated? Urine Glucose Urine Opiates Screen Urine Methadone Screen Ur Barbiturates Screen Ur Tricyclics Screen Ur Amphetamines Screen U Benzodiazepines Scrn Urine Cocaine Screen Ur THC Screen Patient ABO/Rh Antibody Screen Crossmatch 09/08/22 Unknown WBC Cancelled RBC Cancelled Hgb Cancelled Hct Cancelled MCV Cancelled MCH Cancelled MCHC Cancelled RDW Cancelled Plt Count Cancelled MPV Cancelled Immature Gran % Neutrophils % Band Neutrophils % Lymphocytes % Atypical Lymphs % Monocytes % Eosinophils % Basophils % Metamyelocytes % Myelocytes % Promyelocytes % Other Cells % Nucleated RBC % Absolute Neutrophils Absolute Lymphocytes Absolute Monocytes Absolute Eosinophils Absolute Basophils RBC Morphology Polychromasia Hypochromasia Poikilocytosis Basophilic Stippling Anisocytosis Microcytosis Macrocytosis Spherocytes Tear Drop Cells Ovalocytes Stomatocytes [place] Bodies [place] Cells/Echinocytes Acanthocytes (Spur) Schistocytes Sodium Potassium Chloride Carbon Dioxide Anion Gap BUN Creatinine Est GFR (CKD-EPI 2020) Glucose Calcium Total Bilirubin AST ALT Alkaline Phosphatase Total Protein Albumin Urine Color Urine Clarity Urine pH Ur Specific [place] Urine Protein Urine Ketones Urine Blood Urine Nitrite Urine Bilirubin Urine Urobilinogen Ur Leukocyte Esterase Urine RBC Urine WBC Ur Epithelial Cells Urine Crystals Urine Bacteria Urine Casts Urine Mucus Ur Culture Indicated? Urine Glucose Urine Opiates Screen Urine Methadone Screen Ur Barbiturates Screen Ur Tricyclics Screen Ur Amphetamines Screen U Benzodiazepines Scrn Urine Cocaine Screen Ur THC Screen Patient ABO/Rh Antibody Screen Crossmatch Time Spent with Patient Time Spent with Patient: <25 minutes Time was spent: preparing to see the patient(eg.review tests), obtaining and/or reviewing separately otained hiistory, ordering medications,tests, procedures and counseling the patient
--- NOTE | 2022-09-08 12:02 | W.ANESPOSTOP ---
Postoperative Evaluation Date, Time and Location Date Performed: 09/08/22 Time Performed: 12:02 Patient Location: Intensive Care Unit Vital Signs Most Recent Imported Vital Signs: Most Recent Vital Signs Temp Pulse Resp BP Pulse Ox 37.1 C 65 19 107/53 L 97 09/08/22 09:12 09/08/22 10:01 09/08/22 10:01 09/08/22 10:01 09/08/22 10:01 Pain Score Most Recent Pain Score: Most Recent Pain Score Pain Level 8 09/08/22 09:54 Assessment Mental Status: Awake (Alert & Oriented to Patient Baseline) Airway and Respiratory Function: Patent airway with normal (patient baseline) respiratory exam Cardiovascular Function: Hemodynamically Stable Hydration Status: Adequately Hydrated Nausea & Vomiting: No Nausea or Vomiting Pain: Pain is tolerable per patient Peripheral Nerve Block: Patient did not receive a nerve block
[2022-09-08] MEDS: Acetaminophen 500 MG TAB PO (13:30)
[2022-09-08 14:38] LABS: Fibrinogen (Stat) (Littleton) 325 mg/dL (208-434)
[2022-09-08] MEDS: Lactated Ringers 1,000 ML 75 ML IV (15:00)
--- NOTE | 2022-09-08 17:08 | CHAPLAIN ---
Minal was in the ICU following a procedure in OR early this morning. She was about 15 weeks and the fetus did not survive. Later in the day Minal was moved to the Center for her care. She told me that she moved here just a week ago and is living in with her sister. Minal has a five month old daughter. Her is back in [place], and is expected to move here to be with Minal. Minal said she is physically and emotionally exhausted. Her sister has been with her today. She said the staff have been very nice to her. She is Buddhism and asked if we have any Buddhism-based grief devotionals. I'll check to see. I let Minal know that Im artificial stone setter chandana and am available to come in anytime to keep her company.
--- NOTE | 2022-09-08 17:15 | PDOC.DSDIS_ITS ---
Date of service: 09/08/22 Time of Service: 17:15 Discharge Plan Disposition Condition: Good Discharge Details Reason For Visit: Placenta abruption at 15 weeks, hemorrage, D&E Admit Date/Time: 09/07/22 22:17 Admit Provider: Maeve Platt Attending Provider: Maeve Platt Primary Care Provider: Kath,Local Hospital Course Hospital Course: Admitted at 15wks with vaginal bleeding and partial placenta previa. E xperienced increased bleeding and hemorrhage with cervical dilation and underwent uncomplicated D&E. Home Meds and New Rx's Prescriptions: New acetaminophen 500 mg Tablet 500 - 1,000 mg PO Q4H PRN PRNQty: 60 0RF docusate sodium [Colace] 100 mg Capsule 100 mg PO BID Qty: 50 0RF ibuprofen 600 mg Tablet 600 mg PO Q6H PRN PRNQty: 40 0RF Continued [id number] 90-1-50 mg Tablet 1 tab PO DAILY ferrous [id number] conc Capsule 1 cap PO DAILY Discontinued folic acid 1 mg Tablet 1 mg PO DAILY Discharge Instructions Activity:: nothing in the vagina Equipment/Supplies:: No Equipment Needed Diet:: As Tolerated DS: Diagnosis Discharge Diagnosis (1) History of D&C: Status: Acute Asessment and Plan: F/u later this week. Nothing per vagina. (2) Miscarriage: Status: Acute Asessment and Plan: Pt grieving appropriately. Given memory box. Will be staying with her sister for a few days. Will f/u in 2 days - would like to get nexplanon.
--- NOTE | 2022-09-08 17:17 | W.PM.PROGNOT ---
Date of Service Date of service: 09/08/22 Time of Service: 17:17 Assessment and Plan Assessment and plan (1) History of D&C: Assessment and plan: H/H up from prior to D&E s/p 2U PRBC. Pt ambulating without issues. Will be discharged to her sister's place. She will f/u in 2 days. She is interestedin nexplanon placement for contraception. (2) Miscarriage: Status: Acute Assessment and plan: Grieving appropriately. Has support from her sister. Subjective Subjective Interval history since last seen: Pt is doing ok. Out of bed without assistance now. +void. Minimal bleeding. Still c/o some crampy pain but it's tolerable with toradol and heat and tylenol. She strongly desires discharge to her sister's place. She feels that she is more anxious when she can't be with her 5mo daughter. Exam Const General: cooperative, no acute distress and anxious HENMT Head: normal to inspection and atraumatic (dressing in place from central line) Other: Mildly tender. Minimal bleeding Objective Last Vital Signs Temp 98.2 F 09/08/22 17:14 Pulse 78 09/08/22 17:14 Resp 18 09/08/22 17:14 BP 119/72 09/08/22 17:14 Pulse Ox 99 09/08/22 17:14 Laboratory Results - last 24 hr 09/07/22 09/07/22 09/07/22 20:40 20:40 20:40 WBC Cancelled RBC Cancelled Hgb Cancelled Hct Cancelled MCV Cancelled MCH Cancelled MCHC Cancelled RDW Cancelled Plt Count Cancelled MPV Cancelled Immature Gran % Cancelled Neutrophils % Cancelled Band Neutrophils % Cancelled Lymphocytes % Cancelled Atypical Lymphs % Cancelled Monocytes % Cancelled Eosinophils % Cancelled Basophils % Cancelled Metamyelocytes % Cancelled Myelocytes % Cancelled Promyelocytes % Cancelled Other Cells % Cancelled Nucleated RBC % Cancelled Absolute Neutrophils Cancelled Absolute Lymphocytes Cancelled Absolute Monocytes Cancelled Absolute Eosinophils Cancelled Absolute Basophils Cancelled RBC Morphology Cancelled Polychromasia Cancelled Hypochromasia Cancelled Poikilocytosis Cancelled Basophilic Stippling Cancelled Anisocytosis Cancelled Microcytosis Cancelled Macrocytosis Cancelled Spherocytes Cancelled Tear Drop Cells Cancelled Ovalocytes Cancelled Stomatocytes Cancelled [place] Bodies Cancelled Veronica Cells/Echinocytes Cancelled Acanthocytes (Spur) Cancelled Schistocytes Cancelled Fibrinogen Sodium 133 L Potassium 3.9 Chloride 101 Carbon Dioxide 22.6 Anion Gap 9.4 BUN 10 Creatinine 0.6 Est GFR (CKD-EPI 2020) 123.76 Glucose 103 Calcium 8.6 Total Bilirubin 0.2 AST 16 ALT 17 Alkaline Phosphatase 52 Total Protein 6.9 Albumin 3.5 Urine Color Urine Clarity Urine pH Ur Specific [place] Urine Protein Urine Ketones Urine Blood Urine Nitrite Urine Bilirubin Urine Urobilinogen Ur Leukocyte Esterase Urine RBC Urine WBC Ur Epithelial Cells Urine Crystals Urine Bacteria Urine Casts Urine Mucus Ur Culture Indicated? Urine Glucose Urine Opiates Screen Urine Methadone Screen Ur Barbiturates Screen Ur Tricyclics Screen Ur Amphetamines Screen U Benzodiazepines Scrn Urine Cocaine Screen Ur THC Screen Patient ABO/Rh O Positive Antibody Screen NEGATIVE Crossmatch See Detail 09/07/22 09/07/22 09/07/22 21:30 21:30 21:41 WBC 17.51 H RBC 2.94 L Hgb 9.1 L Hct 26.8 L MCV 91 MCH 31.0 MCHC 34.0 RDW 13.2 Plt Count 203 MPV 11.7 H Immature Gran % 0.7 Neutrophils % 81.0 Band Neutrophils % Lymphocytes % 13.5 Atypical Lymphs % Monocytes % 3.9 Eosinophils % 0.7 Basophils % 0.2 Metamyelocytes % Myelocytes % Promyelocytes % Other Cells % Nucleated RBC % 0.0 Absolute Neutrophils 14.18 H Absolute Lymphocytes 2.36 Absolute Monocytes 0.68 Absolute Eosinophils 0.12 Absolute Basophils 0.04 RBC Morphology Polychromasia Hypochromasia Poikilocytosis Basophilic Stippling Anisocytosis Microcytosis Macrocytosis Spherocytes Tear Drop Cells Ovalocytes Stomatocytes [place] Bodies [place] Cells/Echinocytes Acanthocytes (Spur) Schistocytes Fibrinogen Sodium Potassium Chloride Carbon Dioxide Anion Gap BUN Creatinine Est GFR (CKD-EPI 2020) Glucose Calcium Total Bilirubin AST ALT Alkaline Phosphatase Total Protein Albumin Urine Color Red Urine Clarity Turbid Urine pH 7.5 Ur Specific [place] 1.025 Urine Protein >=300 H Urine Ketones Negative Urine Blood Large H Urine Nitrite Negative Urine Bilirubin Small H Urine Urobilinogen 0.2 Ur Leukocyte Esterase Trace H Urine RBC >50 H Urine WBC Ur Epithelial Cells Urine Crystals Urine Bacteria Urine Casts Urine Mucus Ur Culture Indicated? Yes Urine Glucose Negative Urine Opiates Screen Negative Urine Methadone Screen Negative Ur Barbiturates Screen Negative Ur Tricyclics Screen Negative Ur Amphetamines Screen Negative U Benzodiazepines Scrn Negative Urine Cocaine Screen Negative Ur THC Screen Positive A Patient ABO/Rh Antibody Screen Crossmatch 09/08/22 09/08/22 09/08/22 04:40 05:35 09:55 WBC Cancelled RBC Cancelled Hgb Cancelled Hct Cancelled MCV Cancelled MCH Cancelled MCHC Cancelled RDW Cancelled Plt Count Cancelled MPV Cancelled Immature Gran % Neutrophils % Band Neutrophils % Lymphocytes % Atypical Lymphs % Monocytes % Eosinophils % Basophils % Metamyelocytes % Myelocytes % Promyelocytes % Other Cells % Nucleated RBC % Absolute Neutrophils Absolute Lymphocytes Absolute Monocytes Absolute Eosinophils Absolute Basophils RBC Morphology Polychromasia Hypochromasia Poikilocytosis Basophilic Stippling Anisocytosis Microcytosis Macrocytosis Spherocytes Tear Drop Cells Ovalocytes Stomatocytes [place] Bodies Veronica Cells/Echinocytes Acanthocytes (Spur) Schistocytes Fibrinogen Cancelled Sodium 136 Potassium 3.9 Chloride 106 Carbon Dioxide 22.5 Anion Gap 7.5 BUN 5 L Creatinine 0.5 L Est GFR (CKD-EPI 2020) 129.32 Glucose 119 H Calcium 7.9 L Total Bilirubin 1.6 H AST 15 ALT 16 Alkaline Phosphatase 51 Total Protein 5.8 L Albumin 3.1 L Urine Color Urine Clarity Urine pH Ur Specific [place] Urine Protein Urine Ketones Urine Blood Urine Nitrite Urine Bilirubin Urine Urobilinogen Ur Leukocyte Esterase Urine RBC Urine WBC Ur Epithelial Cells Urine Crystals Urine Bacteria Urine Casts Urine Mucus Ur Culture Indicated? Urine Glucose Urine Opiates Screen Urine Methadone Screen Ur Barbiturates Screen Ur Tricyclics Screen Ur Amphetamines Screen U Benzodiazepines Scrn Urine Cocaine Screen Ur THC Screen Patient ABO/Rh Antibody Screen Crossmatch 09/08/22 09/08/22 09/08/22 09:55 11:40 Unknown WBC 19.47 H Cancelled RBC 3.30 L Cancelled Hgb 10.1 L Cancelled Hct 29.5 L Cancelled MCV 89 Cancelled MCH 30.6 Cancelled MCHC 34.2 Cancelled RDW 13.7 Cancelled Plt Count 186 Cancelled MPV 11.5 H Cancelled Immature Gran % 0.8 Neutrophils % 93.4 Band Neutrophils % Lymphocytes % 4.6 Atypical Lymphs % Monocytes % 0.9 Eosinophils % 0.1 Basophils % 0.2 Metamyelocytes % Myelocytes % Promyelocytes % Other Cells % Nucleated RBC % 0.0 Absolute Neutrophils 18.18 H Absolute Lymphocytes 0.90 L Absolute Monocytes 0.18 Absolute Eosinophils 0.02 Absolute Basophils 0.04 RBC Morphology Polychromasia Hypochromasia Poikilocytosis Basophilic Stippling Anisocytosis Microcytosis Macrocytosis Spherocytes Tear Drop Cells Ovalocytes Stomatocytes [place] Bodies [place] Cells/Echinocytes Acanthocytes (Spur) Schistocytes Fibrinogen 325 Sodium Potassium Chloride Carbon Dioxide Anion Gap BUN Creatinine Est GFR (CKD-EPI 2020) Glucose Calcium Total Bilirubin AST ALT Alkaline Phosphatase Total Protein Albumin Urine Color Urine Clarity Urine pH Ur Specific [place] Urine Protein Urine Ketones Urine Blood Urine Nitrite Urine Bilirubin Urine Urobilinogen Ur Leukocyte Esterase Urine RBC Urine WBC Ur Epithelial Cells Urine Crystals Urine Bacteria Urine Casts Urine Mucus Ur Culture Indicated? Urine Glucose Urine Opiates Screen Urine Methadone Screen Ur Barbiturates Screen Ur Tricyclics Screen Ur Amphetamines Screen U Benzodiazepines Scrn Urine Cocaine Screen Ur THC Screen Patient ABO/Rh Antibody Screen Crossmatch Time Spent with Patient Time Spent with Patient: <25 minutes Time was spent: preparing to see the patient(eg.review tests) and counseling the patient
--- NOTE | 2022-09-15 16:46 | DSE_ITS ---
Date of service: 09/08/22 Time of Service: 17:00 DS: Diagnosis Discharge Diagnosis (1) History of D&C: Asessment and Plan: F/u with Dr. Platt in 2 days. Interested in nexplanon placement (2) Miscarriage: Discharge Plan Disposition Patient Disposition: Home Condition: Good Discharge Details Reason For Visit: Placenta abruption at 15 weeks, hemorrage, D&E Admit Date/Time: 09/07/22 22:17 Admit Provider: Maeve Platt Attending Provider: Maeve Platt Hospital Course Hospital Course: Admitted at 15wks with vaginal bleeding and partial placenta previa. Experienced increased bleeding and hemorrhage with cervical dilation and underwent uncomplicated D&E. Experienced a likely pseudoseizure in PACU and was briefly observed in the ICU before returning to the center. Later in the same day she was ambulating and feeling well and desired d/c. She would be spending the night with her sister. Home Meds and New Rx's Prescriptions: New acetaminophen 500 mg Tablet 500 - 1,000 mg PO Q4H PRN PRNQty: 60 0RF docusate sodium [Colace] 100 mg Capsule 100 mg PO BID Qty: 50 0RF ibuprofen 600 mg Tablet 600 mg PO Q6H PRN PRNQty: 40 0RF Continued [id number] 90-1-50 mg Tablet 1 tab PO DAILY ferrous [id number] conc Capsule 1 cap PO DAILY Discontinued folic acid 1 mg Tablet 1 mg PO DAILY No Action levetiracetam [Keppra XR] 500 mg tablet extended release 24 hr 1,000 mg PO DAILY Qty: 60 5RF Discharge Instructions Stand Alone Forms: DSU Post D&C Miscarriage Activity:: nothing in the vagina Equipment/Supplies:: No Equipment Needed Diet:: As Tolerated Discharge Orders Discharge Orders: Discharge Order (Routine); Ordered 09/08/22 Ordered By: Oxana Galdamez Discharge Data Discharge Date/Time-TO BE ENTERED AT DEPARTURE: 09/08/22 17:30 DS: Summary Time Spent with Patient providing and/or coordinating discharge services: Greater than 30 minutes Status at Discharge Functional status at discharge: independent ambulation Overall status at discharge: patient is back to baseline Mental Status: mental status grossly normal Speech and Movement: speech and movement normal Mood: congruent mood Affect: sad Exam Psych Mental Status: mental status grossly normal Speech and Movement: speech and movement normal Mood: congruent mood Affect: sad DS: Data Vitals/I&O Vitals and I&O: Vital Signs Temperature 98.2 F 09/08/22 17:14 Temperature Source Temporal Artery Scan 09/08/22 09:12 Temperature Source Oral 09/08/22 17:14 Pulse 78 09/08/22 17:14 Pulse Rhythm Regular 09/08/22 13:23 Pulse 66 09/08/22 12:10 Respiratory Rate 18 09/08/22 17:14 Respiratory Effort Normal 09/08/22 13:23 Respiratory Depth Normal 09/08/22 13:23 Respiratory Pattern Normal 09/08/22 13:23 Blood Pressure 119/72 09/08/22 17:14 Blood Pressure Mean 87 09/08/22 17:14 Blood Pressure Position Supine 09/08/22 09:12 Pulse Oximetry 99 09/08/22 17:14 Respiratory End-tidal CO2 26 09/08/22 07:30 Oxygen Delivery Method Room Air 09/08/22 09:12 Oxygen Flow Rate 0 09/08/22 09:12 Pain Level 4 09/08/22 12:10 Comment See TAR for vitals. 09/08/22 04:56 Arterial Systolic 7 09/08/22 11:40 Arterial Diastolic 4 09/08/22 11:40 Arterial Mean 6 09/08/22 11:40 PFSH All Active Problems (Updated 09/09/22 @ 00:09 by [employer]) History of substance use disorder (Chronic) 09/08/2022 no narcotics for the past 5 years. Family members have recommended avoiding narcotics for pain control. Medical History (Updated 09/09/22 @ 00:09 by [employer]) Asthma Bicornuate uterus Constipation First trimester bleeding Grand mal seizure disorder Stopped into seizure meds with positive test. History of transfusion Patient received 2 units of pre and intraoperative packed red blood cells. Miscarriage 09/08/2022. Secondary to placental abruption. Pathology currently pending: Chromosomes and gross pathology of placenta Conceived 5 months after previous vaginal . BRANDON 03/01/2023 Subchorionic bleed 65 x 52 x 39 mm on 08/29/2022 ultrasound [facility] Surgical History (Updated 09/09/22 @ 00:09 by KARSTEN MARTINEZ) History of appendectomy History of cholecystectomy History of D&C 09/08/2022. 15-week placental abruption. History of tonsillectomy Social History (Updated 09/10/22 @ 15:42 by Maeve Platt MD) Smoking/Tobacco Use Status: Never Smoking risk assessment performed?: Yes Alcohol Intake: never Drug use: Current Sobriety Substance use type: does not use and former substance user Details: stopped 2017. Household members: significant other, family, children and other Details: RATNA Hewitt in [place]. t moved with her 5mo daughter with her sister Number of Children: 1 Do you feel safe at home: Yes Do you feel safe in your relationship?: Yes Additional Social history: does not drive secondary to seizure disorder. Family members: Glory phone , Daughter-Angélica FAIRCHILD 2020. Embryonic demise-Zaia 15w 09/08/22. History History 3 Para Hx # Term Pregnancies 1 Multiple births Hx # Pregnancies Ectopic pregnancies AB induced Hx Number of Living Children 1 AB spontaneous 1 Time Spent with Patient Time Spent with Patient: <45 minutes Time was spent: preparing to see the patient(eg.review tests), obtaining and/or reviewing separately otained hiistory, counseling the patient and care coordination
[2022-09-15 20:27] LABS: Buprenorphine Negative ng/mL (Cutoff: 5.0); Norbuprenorphine Negative ng/mL (Cutoff: 2.5)
== END 2022-09-08 17:30 | disposition home or self-care (01) ==
LOC: ER 23:33 → OBS 09-08 00:13 → ICU 09-08 07:59 → OBS 09-08 13:21
PROVIDERS: Obstetrics & Gynecology; Admitting Provider Obstetrics & Gynecology Gynecology; Emergency Provider Physician Assistant; Visit Provider Obstetrics & Gynecology Gynecology
PROC: (CPT 59841; principal; 2022-09-08 04:00)
DX: O45.92 Premature separation of placenta, unspecified, second trimester (principal); Z3A.15 15 weeks gestation of pregnancy; O34.02 Maternal care for unspecified congenital malformation of uterus, second trimester; Q51.3 Bicornate uterus; O03.1 Delayed or excessive hemorrhage following incomplete spontaneous abortion; O44.32 Partial placenta previa with hemorrhage, second trimester; O99.352 Diseases of the nervous system complicating pregnancy, second trimester; G40.409 Other generalized epilepsy and epileptic syndromes, not intractable, without status epilepticus; O99.612 Diseases of the digestive system complicating pregnancy, second trimester; O99.512 Diseases of the respiratory system complicating pregnancy, second trimester; J45.909 Unspecified asthma, uncomplicated; K59.00 Constipation, unspecified; I95.9 Hypotension, unspecified
CPT/HCPCS: 59812; 36415; 71045; 76815; 80053; 80307; 80348; 85027; 85384; 86850; 86900; 86901; 86920; 88305; 96365; 96366; 96375; 96376; 81003; 81015; 85025; 87086; 88233; 88262; G0378; J0690; J0780; J1100; J1200; J1885; J2250; J2270; J2405; J2704; J3010; P9016; P9059